=== PATIENT | female | born 1965 | race Caucasian/White ===

== ENCOUNTER 2022-01-22 16:21 | Outpatient (CLI) | payer OTHER, SELFPAY ==
[2022-01-22 21:33] LABS: Chloride* 103 mmol/L (96-114); Potassium* 4.3 mmol/L (3.6-5.1); Sodium* 140 mmol/L (135-149)
[2022-01-22 21:36] LABS: Blood Urea Nitrogen* 13 mg/dL (7-30); Carbon Dioxide* 29 mmol/L (20-32); Creatinine* 0.6 mg/dL (0.5-1.5); Estimated Glomerular Filt Rate 104 ml/min
[2022-01-22 21:37] LABS: Calcium* 8.9 mg/dL (8.4-10.6); Glucose* 133 mg/dL (60-115)
== END 2022-01-22 16:22 | disposition home or self-care (01) ==
LOC: LKVREF 16:23
PROVIDERS: PCP Physician Assistant Medical; Visit Provider Physician Assistant Medical
DX: Z01.818 Encounter for other preprocedural examination (principal)
CPT/HCPCS: 80048

== ENCOUNTER 2022-01-24 08:11 | Day surgery (SDC) | payer OTHER, SELFPAY ==
[2022-01-22 16:33] LABS: Hemoglobin* 12.9 gm/dL (12.0-16.0); Mean Corpuscular HGB Conc 32 gm/dL (32-36); Mean Corpuscular Hemoglobin 27 pg (26-34); Mean Corpuscular Volume 85 fL (80-100); Platelet Count* 388 K/uL (140-440); Red Blood Count 4.71 m/uL (4.00-5.20); White Blood Count* 11.06 K/uL (4.50-11.00)
[2022-01-22 17:59] LABS: Slide Review Reflex No
[2022-01-23] MEDS: LACTATED RINGERS 1000 ML 1,000 ML 100 ML IV ×2 (08:25→14:00)
[2022-01-24] VITALS (9 sets, daily range): BP systolic 104–133; BP diastolic 65–90; PULSE 63–86; RESP 14–16; TEMP 36.1–36.8; O2SAT 92–98; BMI 37.4
[2022-01-24] MEDS: OXYMETAZOLINE 0.05% NASAL SPRAY 2 SPRAY NOSTRIL-B (10:22)
[2022-01-24] MEDS: COCAINE HCL 4 % 4 ML SOLUTION NOSTRIL-B (12:08)
[2022-01-24] MEDS: BUPIVACAINE 0.5%/EPINEPHRINE 0.9 MG (30.9 ML) INJECTION (12:10)
[2022-01-24] MEDS: MUPIROCIN 1 GM PACKET 1 APPLIC TOPICAL (12:15)
--- NOTE | 2022-01-24 12:18 | P.ENTPROC_ITS ---
Procedure Note Date of procedure: 01/24/22 Procedure: Preoperative diagnosis Nasal headache, right middle turbinate karla bullosa, nasal obstruction Postoperative diagnosis same Findings same Blood loss less than 10 mL Complications none Procedure partial reduction right middle turbinate karla bullosa Under general endotracheal anesthesia patient was prepped and draped in usual fashion and the nose injected and decongested. The procedure was done with the available assistance of a 0 degree endoscope. The right middle turbinate was incised along its inferolateral aspect and a tunnel created with a Brent dissector. The bone was then infractured and the remainder of the turbinate crushed with the [place] forceps. I simply crushed the left middle turbinate. Merocel packing was placed beneath the middle turbinates on each side and a posipack was placed in the middle meatus on the right side. Patient procedure well was taken recovery in satisfactory condition Surgeon: Lupillo Villarreal MD
--- NOTE | 2022-01-24 12:38 | W.ANESCHARGE ---
Anesthesia Charges Start Date/Time Anesthesia Start Date: 01/24/22 Anesthesia Start Time: 11:55 Stop Date/Time Anesthesia Stop Date: 01/24/22 Anesthesia Stop Time: 12:38 Summary Emergency: No
--- NOTE | 2022-01-24 13:58 | W.ANESCHARGE ---
Anesthesia Charges Start Date/Time Anesthesia Start Date: 01/24/22 Anesthesia Start Time: 11:55 Stop Date/Time Anesthesia Stop Date: 01/24/22 Anesthesia Stop Time: 12:38 Summary Emergency: No
== END 2022-01-24 13:54 | disposition home or self-care (01) ==
PROVIDERS: PCP Physician Assistant Medical; Visit Provider Otolaryngology
PROC: 09SL4ZZ Reposition Nasal Turbinate, Percutaneous Endoscopic Approach (ICD-10-PCS; CPT 30999; principal; 2022-01-24 11:15)
DX: J34.3 Hypertrophy of nasal turbinates (principal); J34.89 Other specified disorders of nose and nasal sinuses; R51.9 Headache, unspecified
CPT/HCPCS: 30999; 00160; 36415; 85027; A9270; J0330; J1100; J1200; J2405; J2704; J3010; J7120

== ENCOUNTER 2022-04-08 12:07 | Outpatient (CLI) | payer OTHER, SELFPAY ==
[2022-04-08 21:58] LABS: Albumin* 4.2 g/dL (3.3-5.0)
[2022-04-08 22:01] LABS: Alkaline Phosphatase* 86 U/L (40-150); Aspartate Amino Transferase* 24 U/L (12-35); Bilirubin Direct* 0.3 mg/dL (0.0-0.5); Bilirubin Total* 0.4 mg/dL (0.1-1.5); Total Protein* 6.7 g/dL (6.0-8.3)
[2022-04-08 22:02] LABS: Alanine Aminotransferase* 23 U/L (4-35); Lipase* 88 U/L (23-300)
== END 2022-04-08 12:08 | disposition home or self-care (01) ==
PROVIDERS: PCP Physician Assistant Medical; Visit Provider Emergency Medicine
DX: R35.0 Frequency of micturition (principal); R31.9 Hematuria, unspecified; R10.9 Unspecified abdominal pain; R73.03 Prediabetes; R32 Unspecified urinary incontinence
CPT/HCPCS: 80076; 83690; 87086; 87186

== ENCOUNTER 2022-04-11 15:44 | Outpatient (CLI) | payer OTHER, SELFPAY ==
--- NOTE | 2022-04-11 16:00 | CRLHL7_ITS ---
For Patients: As a result of the Century Cures Act, medical imaging exams and procedure reports are released immediately into your electronic medical record. You may view this report before your referring provider. If you have questions, please contact your health care provider. INDICATION: Pain TECHNIQUE: Ultrasound abdomen limited. Sonographic images of the right upper quadrant were obtained using arias-scale and color Doppler images. COMPARISON: None FINDINGS: Liver: Hepatomegaly at 20.0 centimeters with diffuse fatty infiltration. No masses. No intrahepatic biliary dilatation. Gallbladder: 1.9 centimeter gallstone at the level of the gallbladder neck. Normal wall thickness. No pericholecystic fluid. Common bile duct: 7 mm. Pancreas: Normal. Right kidney: 11.7 cm. Normal echotexture and cortex. No masses, stones, or hydronephrosis. Vasculature: Proximal abdominal aorta and IVC are normal. IMPRESSION: Hepatomegaly at 20.0 centimeters with diffuse fatty infiltration. 1.9 centimeter gallstones level gallbladder neck. Common bile duct at the upper limits of normal. No gallbladder wall thickening or pericholecystic fluid. Dictated by Ilya Story MD @ 04/11/2022 5:01:17 PM (Electronically Signed)
== END 2022-04-11 15:45 | disposition home or self-care (01) ==
LOC: US 15:45
PROVIDERS: PCP Physician Assistant Medical; Visit Provider Emergency Medicine
DX: R10.9 Unspecified abdominal pain (principal); K76.0 Fatty (change of) liver, not elsewhere classified
CPT/HCPCS: 76705

== ENCOUNTER 2022-04-29 10:02 | Day surgery (SDC) | payer OTHER, SELFPAY ==
[2022-04-29] VITALS (17 sets, daily range): BP systolic 114–145; BP diastolic 62–92; PULSE 58–91; RESP 12–17; TEMP 36.2–36.6; O2SAT 90–100; BMI 37.6
[2022-04-29] MEDS: SODIUM CHLORIDE 0.9 % (FLUSH) 10 ML SYRINGE IVF (10:30)
[2022-04-29] MEDS: LACTATED RINGERS 1000 ML 1,000 ML 100 ML IV (10:30)
--- NOTE | 2022-04-29 11:35 | CRLHL7_ITS ---
For Patients: As a result of the Century Cures Act, medical imaging exams and procedure reports are released immediately into your electronic medical record. You may view this report before your referring provider. If you have questions, please contact your health care provider. INDICATION: Post cholecystectomy intraoperative cholangiogram. TECHNIQUE: Intraoperative C-arm fluoroscopy. IMPRESSION: Intraoperative cholangiogram was obtained. No sign of retained stone. No sign of contrast extravasation to suggest biliary leak. Fluoroscopy time 45.9 seconds. Two images were captured. Dictated by Fabio Castillo MD @ 04/29/2022 2:16:06 PM (Electronically Signed)
--- NOTE | 2022-04-29 11:36 | P.GSOP_ITS ---
Operative Note Date of procedure: 04/29/22 Type of Procedure: 1. Laparoscopic cholecystectomy with intraoperative cholangiogram. Procedure Description: After discussing the risks and benefits of the procedure, the patient signed informed consent.? The operative site was marked and the patient was brought to the operating room and placed on the operating table in supine position.? Care was taken to pad the patient's pressure points.?? The patient was then intubated by anesthesia.?? The operative site was then prepped and draped in the usual sterile fashion.? A time-out was then performed. A 5-mm laparoscopy port was placed in the left upper quadrant guided by a 5-mm laparoscope placed into a translucent trochar.~ Passage through the layers of the abdominal wall was visualized with the laparoscope.~ A pneumoperitoneum was established. A 0-degree 5-mm laparoscope was advanced into the abdomen. The abdomen was briefly surveyed, and no adhesions were noted. A 10-mm port were placed infraumbilically and two more 5 mm ports were placed on the right under direct visualization by laparoscope. The camera was then changed to 10 mm 30- degree scope and placed into the abdomen through the 10 mm port. The left upper quadrant port entrance was examined and no injury to intra-abdominal organs was identified. The liver was enlarged and congested. The gallbladder was identified, and omentum was adherent to the gallbladder. Omental adhesions were taken down with hook cautery. The gallbladder fundus was grasped and retracted cephalad. The infundibulum was grasped and retracted laterally, exposing the peritoneum overlying the triangle of Calot. This was then divided and exposed in a blunt fashion and with hook cautery. Common bile duct was not identified but care was taken not to injure it. The cystic duct was clearly identified and bluntly dissected circumferentially. Cystic artery was identified and tissues around it were dissected off. The cystic artery and the cystic duct were clearly going into the gallbladder. There was a small vessel located posterior to the cystic duct and that was left in place. The cystic artery was doubly ligated with 5 mm clips on the patient's side and a single clip was placed on the specimen side and the cystic artery was divided with scissors. A small branch was going from the posterior blood vessel into the cystic duct and that was clipped on the patient's side and divided with cautery near the cystic duct. The cystic duct was clearly identified and was relatively small in size. I then proceeded with intraoperative cholangiogram. The cystic duct was clipped with a 5 mm clip on the gallbladder side and a small ductotomy was made with laparoscopic Metzenbaum scissors. An additional 5 mm port was placed under direct visualization in the right upper quadrant. A blue introducer from an Arrow cholangiogram kit was placed through the port and a cholangiocatheter was placed through the introducer and directed into the cystic duct. The catheter was then clipped with a single 5 mm clip at the ductotomy site to secure it in place. Fluoroscopy was brought onto the field and Optiray 300 contrast dye was injected through the cholangiocatheter. The biliary tree was visualized and the contrast appeared to be emptying into the small bowel. No filling defects were noted in the common bile duct. At this time 5 mm clip on the cystic duct and cholangiocatheter were removed and the cholangiocatheter was removed from the cystic duct. The duct was then clipped with three 5 mm clips on the patient's side just below the ductotomy. The cystic duct was then divided at the level of ductotomy. The gallbladder was dissected from the liver bed in retrograde fashion using hookcautery. The posterior vessel visualized earlier was coursing along lateral gallbladder fossa. This was left in place. When the gallbladder was free, it was placed into an Endo-Catch bag and removed through the infraumbilical incision. Surgical site was examined for bleeding. No bleeding was seen in the surgical field. The fascia of the infraumbilical incision was then closed with 0-0 vicryl using Zack Ashley needle under direct visualization. Pneumoperitoneum was completely reduced after viewing removal of the trocars under direct vision. The skin was then closed with 4-0 monocryl and steristrips were applied. Instrument, sponge, and needle counts were correct at closure and at the conclusion of the case. The patient was transferred to PACU in stable condition.? Findings: A large stone in the neck of the gallbladder. The common bile duct did not have any filling defects/stones on the cholangiogram. Anesthesia: GETA Surgeon: Erik Lozano MD Estimated blood loss (mL): 5 Condition: stable Disposition: PACU
[2022-04-29] MEDS: CLINDAMYCIN 900 MG/50 ML-D5W IVPB (11:58)
[2022-04-29] MEDS: BUPIVACAINE 0.25 %/EPI 1:200K 30 ml INJECTION (12:15)
--- NOTE | 2022-04-29 13:15 | W.ANESCHARGE ---
Anesthesia Charges Start Date/Time Anesthesia Start Date: 01/24/22 Anesthesia Start Time: 11:55 Stop Date/Time Anesthesia Stop Date: 01/24/22 Anesthesia Stop Time: 12:38 Summary Emergency: No
--- NOTE | 2022-04-29 13:22 | W.ANESCHARGE ---
Anesthesia Charges Start Date/Time Anesthesia Start Date: 04/29/22 Anesthesia Start Time: 11:48 Stop Date/Time Anesthesia Stop Date: 04/29/22 Anesthesia Stop Time: 13:20 Summary Emergency: No
--- NOTE | 2022-04-29 13:24 | W.ANESCHARGE ---
Anesthesia Charges Start Date/Time Anesthesia Start Date: 04/29/22 Anesthesia Start Time: 11:48 Stop Date/Time Anesthesia Stop Date: 04/29/22 Anesthesia Stop Time: 13:20 Summary Emergency: No
[2022-04-29] MEDS: fentaNYL 100 MCG/2 ML inj 50 MCG IVP ×2 (13:34→13:40)
[2022-04-29] MEDS: HYDROCODONE-ACETAMIN 5-325 MG 1 TAB PO (14:50)
--- NOTE | 2022-04-29 16:36 | SUR.PHASEII ---
1500: 5 laps sites- covered with steri strips. c/d/i
== END 2022-04-29 15:55 | disposition home or self-care (01) ==
PROVIDERS: PCP Physician Assistant Medical; Visit Provider Surgery
PROC: 0FT44ZZ Resection of Gallbladder, Percutaneous Endoscopic Approach (ICD-10-PCS; CPT 47563; principal; 2022-04-29 11:15)
DX: K80.10 Calculus of gallbladder with chronic cholecystitis without obstruction (principal)
CPT/HCPCS: 47563; 00790; 74300; 76000; 82962; A9270; J1100; J1170; J2250; J2405; J2704; J3010; J3490; J7120; Q9967; S0077

== ENCOUNTER 2022-08-27 11:30 | Outpatient (CLI) | payer OTHER, SELFPAY ==
[2022-08-27 17:52] LABS: C Reactive Protein* 1.7 mg/dL (0.5-1.0)
== END 2022-08-27 11:31 | disposition home or self-care (01) ==
PROVIDERS: PCP Physician Assistant Medical; Visit Provider Emergency Medicine
DX: R04.0 Epistaxis (principal)
CPT/HCPCS: 86140

== ENCOUNTER 2024-06-22 08:23 | Outpatient (CLI) | payer OTHER, SELFPAY | END 2024-06-22 08:24 | disposition home or self-care (01) | PROVIDERS: PCP Physician Assistant Medical; Visit Provider Physician Assistant Medical | DX: E03.9 Hypothyroidism, unspecified (principal); R73.09 Other abnormal glucose; Z13.220 Encounter for screening for lipoid disorders | CPT/HCPCS: 80053; 80061; 84443 ==

== ENCOUNTER 2024-08-01 10:15 | Outpatient (CLI) | payer OTHER, SELFPAY ==
--- NOTE | 2024-08-01 11:33 | P.ANES_ITS ---
Anesthesia Charges Start Date/Time Anesthesia Start Date: 08/01/24 Anesthesia Start Time: 10:57 Stop Date/Time Anesthesia Stop Date: 08/01/24 Anesthesia Stop Time: 11:31 Coding CPT Codes CPT Codes: ANES LWR INTST NDSC NOS - [id number] ([id number]) P3 - PATIENT W/SEVERE SYS DISEASE, QK - HARDWOOD SAWYER 2-4 CNCRNT ANES PROC, QX - DATA COLLECTION TECHNICIAN SVC W/ MD MED DIRECTION
--- NOTE | 2024-08-01 11:33 | W.ANESCHARGE ---
Anesthesia Charges Start Date/Time Anesthesia Start Date: 08/01/24 Anesthesia Start Time: 10:57 Stop Date/Time Anesthesia Stop Date: 08/01/24 Anesthesia Stop Time: 11:31 Coding CPT Codes CPT Codes: ANES LWR INTST NDSC NOS - [id number] ([id number]) P3 - PATIENT W/SEVERE SYS DISEASE, QK - MARKETING FINANCE SPECIALIST 2-4 CNCRNT ANES PROC, QX - FINAL BLOCK PRESS OPERATOR SVC W/ MD MED DIRECTION
--- NOTE | 2024-08-01 12:02 | P.ANES_ITS ---
Anesthesia Charges Start Date/Time Anesthesia Start Date: 08/01/24 Anesthesia Start Time: 10:57 Stop Date/Time Anesthesia Stop Date: 08/01/24 Anesthesia Stop Time: 11:31 Coding CPT Codes CPT Codes: ANES LWR INTST NDSC NOS - [id number] ([id number]) QK - CHIEF INVESTMENT OFFICER 2-4 CNCRNT ANES PROC, QX - ELECTRONIC PREPRESS SYSTEM OPERATOR SVC W/ MED DIRECTION, P3 - PATIENT W/SEVERE SYS DISEASE
--- NOTE | 2024-08-01 12:02 | W.ANESCHARGE ---
Anesthesia Charges Start Date/Time Anesthesia Start Date: 08/01/24 Anesthesia Start Time: 10:57 Stop Date/Time Anesthesia Stop Date: 08/01/24 Anesthesia Stop Time: 11:31 Coding CPT Codes CPT Codes: ANES LWR INTST NDSC NOS - [id number] ([id number]) QK - LANDFILL ATTENDANT 2-4 CNCRNT ANES PROC, QX - MEDICAL BILLING INSTRUCTOR SVC W/ MED DIRECTION, P3 - PATIENT W/SEVERE SYS DISEASE
== END 2024-08-01 10:16 | disposition home or self-care (01) ==
LOC: OP CLINIC 10:16
PROVIDERS: PCP Physician Assistant Medical; Visit Provider Surgery
DX: R19.5 Other fecal abnormalities (principal); D12.3 Benign neoplasm of transverse colon; D12.8 Benign neoplasm of rectum
CPT/HCPCS: 00811; 45381; 45385; 88305; J2704

== ENCOUNTER 2024-09-22 10:48 | Outpatient (CLI) | payer OTHER, SELFPAY ==
--- NOTE | 2024-09-22 11:00 | CRLHL7_ITS ---
For Patients: As a result of the Century Cures Act, medical imaging exams and procedure reports are released immediately into your electronic medical record. You may view this report before your referring provider. If you have questions, please contact your health care provider. INDICATION: Lung cancer screening. History of smoking. TECHNIQUE: Low-dose lung cancer screening non-contrast CT chest. Dose reduction techniques were used. COMPARISON: None. FINDINGS: NODULES: Noncalcified nodule within the left lower lobe measures 1.1 cm. Small nodule in the anterior right lung measuring 2.4 millimeters, . Small subpleural nodular densities in the right lower lobe, and . 2 millimeter nodule left lower lobe . LUNGS AND PLEURA: Emphysema. No infiltrate. Mild dependent atelectasis. MEDIASTINUM: No adenopathy. Visualized thyroid unremarkable. CORONARY ARTERY CALCIFICATION: Mild. LIMITED UPPER ABDOMEN: Incidental splenule. Gallbladder absent. MUSCULOSKELETAL: No fracture. IMPRESSION: 1.1 cm noncalcified nodule left lower lobe. LUNG-RADS CATEGORY: 4A: Suspicious. RADIOLOGIST RECOMMENDATION: Low-dose CT chest in 3 months. Alternatively, PET/CT may be used if there is a greater than or equal to 8 mm solid component. Please note that all CT scans at this facility use dose modulation, iterative reconstruction, and/or weight-based dosing when appropriate to reduce radiation dose to as low as reasonably achievable. Dictated by Ilya Rios MD @ 09/22/2024 12:23:59 PM (Electronically Signed)
--- NOTE | 2024-09-22 11:30 | CRLHL7_ITS ---
For Patients: As a result of the Century Cures Act, medical imaging exams and procedure reports are released immediately into your electronic medical record. You may view this report before your referring provider. If you have questions, please contact your health care provider. BILATERAL SCREENING MAMMOGRAM WITH COMPUTER-AIDED DETECTION AND TOMOSYNTHESIS TECHNIQUE: CC and MLO views were obtained. These mammographic images have been obtained using full-field digital technique. These mammographic images were interpreted with the benefit of computer-aided detection. Breast Tomosynthesis was used in this interpretation. COMPARISON FILM: 02/25/21, 02/21/20, 12/24/18. FINDINGS: The breasts are heterogeneously dense, which may obscure small masses. IMPRESSION: There is no radiographic evidence for malignancy. ASSESSMENT: BI-RADS Category 1: Negative RECOMMENDATION: Routine screening mammogram in 1 year. A lay language report of this examination will be provided to the patient. Ilya Rios M.D. Diagnostic Radiologist [email or web address] SP/Dictated by: Ilya Rios MD @ 09/22/2024 11:44:00 AM (Electronically Signed)
== END 2024-09-22 10:49 | disposition home or self-care (01) ==
LOC: CT 10:49
PROVIDERS: PCP Physician Assistant Medical; Visit Provider Physician Assistant Medical
DX: Z12.2 Encounter for screening for malignant neoplasm of respiratory organs (principal); Z87.891 Personal history of nicotine dependence; R91.8 Other nonspecific abnormal finding of lung field; Z12.31 Encounter for screening mammogram for malignant neoplasm of breast; R92.333 Mammographic heterogeneous density, bilateral breasts
CPT/HCPCS: 71271; 77063; 77067

== ENCOUNTER 2024-10-13 16:03 | Outpatient (CLI) | payer OTHER, SELFPAY ==
--- NOTE | 2024-10-13 16:30 | CRLHL7_ITS ---
For Patients: As a result of the Century Cures Act, medical imaging exams and procedure reports are released immediately into your electronic medical record. You may view this report before your referring provider. If you have questions, please contact your health care provider. PET CT SKULL TO THIGH History: Pulmonary nodule Technique: The patient was injected with 11.8 millicuries of 18F-FDG (fluorodeoxyglucose). Following the appropriate delay interval, PET imaging from the mid brain to the mid thigh was obtained in conjunction with a noncontrast CT examination for improved localization and attenuation correction. The fused volume set was reviewed utilizing 3-D reconstruction. Blood glucose: 100 Comparison: Low-dose lung cancer screening chest CT 09/22/2024 Findings: Max SUV within the liver today is 3.9. PET: Head and Neck: Asymmetric avidity is present within the right greater than left lingual tonsils with a max SUV on the right are 7.7 the left 5.6. Thorax: The 10 millimeter left lower lobe pulmonary nodule is not avid with a max SUV of 1.0; normal lung background max SUV is 1.1. Abdomen/Pelvis: No focal areas of increased uptake. Bones/soft tissues: Diffuse increased osseous avidity is noted, without abnormal focal uptake. ADDITIONAL CT findings include nonvisualization of other previously described tiny pulmonary nodules almost certainly secondary to technique as this study is non breath hold, cholecystectomy, hysterectomy, few colonic diverticula, and mild degenerative changes within the spine. IMPRESSION: 1. Bone marrow activation versus less likely infiltration. Recommend appropriate laboratory correlation and if there is concern, hematology oncology evaluation. 2. Asymmetric right lingual tonsillar avidity is nonspecific, normal variant versus infection/inflammation versus less likely neoplasm. Correlate with direct visualization. 3. 11 millimeter left lower lobe pulmonary nodule is not FDG avid and is highly statistically benign, although low-grade malignancy remains within the differential diagnosis. I would recommend follow-up low-dose lung cancer screening chest CT in 6 months. Dictated by Max Wells MD @ 10/14/2024 6:23:41 PM (Electronically Signed)
== END 2024-10-13 16:04 | disposition home or self-care (01) ==
LOC: RAD 16:03
PROVIDERS: PCP Physician Assistant Medical; Visit Provider Physician Assistant Medical
DX: R91.1 Solitary pulmonary nodule (principal)
CPT/HCPCS: 78815; A9552

== ENCOUNTER 2025-01-09 08:47 | Outpatient (CLI) | payer OTHER, SELFPAY ==
--- NOTE | 2025-01-09 09:00 | CRLHL7_ITS ---
For Patients: As a result of the Cures Act, medical imaging exams and procedure reports are released immediately into your electronic medical record. You may view this report before your referring provider. If you have questions, please contact your health care provider. INDICATION: FOLLOW UP NODULE SEEN ON CT DONE SEPTEMBER 2024 TECHNIQUE: Low-dose lung cancer screening non-contrast CT chest. Dose reduction techniques were used. COMPARISON: CT 10/13/2024, CT 09/22/2024 FINDINGS: NODULES: Stable 11 millimeter nodule left lower lobe. Stable subpleural density right lower lobe and adjacent to the right mediastinum right upper lobe. LUNGS AND PLEURA: Emphysema. MEDIASTINUM: No enlarged lymph nodes. CORONARY ARTERY CALCIFICATION: Mild. LIMITED UPPER ABDOMEN: Incidental splenule. MUSCULOSKELETAL: No fracture. IMPRESSION: Stable 11 millimeter left lower lobe pulmonary nodule. LUNG-RADS CATEGORY: 2: Benign. RADIOLOGIST RECOMMENDATION: Continue annual screening, if eligible, with low-dose CT chest in 12 months. Please note that all CT scans at this facility use dose modulation, iterative reconstruction, and/or weight-based dosing when appropriate to reduce radiation dose to as low as reasonably achievable. Dictated by Ilya Rios MD @ 01/09/2025 11:53:40 AM (Electronically Signed)
[2025-01-09 09:30] LABS: Creatinine* 0.6 mg/dL (0.5-1.5)
[2025-01-09 09:31] LABS: Estimated Glomerular Filt Rate 102 ml/min
== END 2025-01-09 08:48 | disposition home or self-care (01) ==
LOC: CT 08:48
PROVIDERS: PCP Physician Assistant Medical; Visit Provider Physician Assistant Medical
DX: R91.1 Solitary pulmonary nodule (principal); R94.8 Abnormal results of function studies of other organs and systems; J35.1 Hypertrophy of tonsils; M47.892 Other spondylosis, cervical region
CPT/HCPCS: 36415; 70491; 71250; 82565; Q9967